=== PATIENT | female | born 1975 ===

== ENCOUNTER 2021-05-10 10:42 | Outpatient (CLI) | payer OTHER | END 2021-05-10 11:55 | disposition home or self-care (01) | LOC: SONOGRAMA 10:42 | PROVIDERS: ATTEND Pathology Anatomic Pathology & Clinical Pathology | DX: N60.01 Solitary cyst of right breast (principal) ==

== ENCOUNTER 2023-10-20 11:42 | Outpatient (CLI) | payer OTHER | END 2023-10-20 11:52 | disposition home or self-care (01) | LOC: SONOGRAMA 11:42 | PROVIDERS: ATTEND Pathology Anatomic Pathology & Clinical Pathology | DX: D34 Benign neoplasm of thyroid gland (principal); E04.9 Nontoxic goiter, unspecified ==

== ENCOUNTER 2024-12-30 08:36 | Outpatient (CLI) | payer OTHER | END 2024-12-30 08:41 | disposition home or self-care (01) | LOC: SONOGRAMA 08:36 | PROVIDERS: ATTEND Pathology Anatomic Pathology & Clinical Pathology | DX: D34 Benign neoplasm of thyroid gland (principal); E07.89 Other specified disorders of thyroid; E04.2 Nontoxic multinodular goiter ==